=== PATIENT | female | born 1995 | race Caucasian/White ===

== ENCOUNTER 2024-03-10 16:04 | Emergency (ER) | payer OTHER, SELFPAY | END 2024-03-10 17:35 | disposition home or self-care (01) | LOC: NAV ERS 16:04 | DX: K04.7 Periapical abscess without sinus (principal); N64.51 Induration of breast; F17.210 Nicotine dependence, cigarettes, uncomplicated | CPT/HCPCS: 99282 ==

== ENCOUNTER 2025-01-29 16:22 | Emergency (ER) | payer OTHER | END 2025-01-29 16:43 | disposition home or self-care (01) | LOC: NAV ERS 16:22 | DX: K08.89 Other specified disorders of teeth and supporting structures (principal); K04.7 Periapical abscess without sinus; K02.9 Dental caries, unspecified; K03.81 Cracked tooth; F17.210 Nicotine dependence, cigarettes, uncomplicated | CPT/HCPCS: 99282 ==

== ENCOUNTER 2025-03-16 22:40 | Emergency (ER) | payer OTHER ==
[2025-03-16] MEDS ORDERED: Ibuprofen 800 MG TAB ONE (23:00)
== END 2025-03-16 23:07 | disposition home or self-care (01) ==
LOC: NAV ERS 22:40
DX: K04.7 Periapical abscess without sinus (principal); F17.290 Nicotine dependence, other tobacco product, uncomplicated; Z79.899 Other long term (current) drug therapy
CPT/HCPCS: 99283

== ENCOUNTER 2025-04-10 03:18 | Emergency (ER) | payer OTHER ==
[2025-04-10] MEDS ORDERED: HYDROcodone/Acetaminophen 5/325 mg Tablet ONE (03:38)
== END 2025-04-10 04:05 | disposition home or self-care (01) ==
LOC: NAV ERS 03:18
DX: H65.191 Other acute nonsuppurative otitis media, right ear (principal); K02.9 Dental caries, unspecified; F17.290 Nicotine dependence, other tobacco product, uncomplicated
CPT/HCPCS: 99282

== ENCOUNTER 2025-05-04 17:31 | Emergency (ER) | payer OTHER ==
[2025-05-04] MEDS ORDERED: Aspirin Chewable 81 MG TAB ONE (18:01)
[2025-05-04] MEDS ORDERED: Acetaminophen 500 MG TAB ONE (18:01)
[2025-05-04 18:32] LABS: Hematocrit 43.4 % (36.0-47.0); Hemoglobin 15.4 g/dL (12.0-16.0); Mean Corpuscular Hemoglobin 29.8 pg (27.0-31.0); Mean Corpuscular Volume 84.1 fl (78.0-98.0); Red Blood Cell (RBC) Count 5.16 mill/uL (4.20-5.40); White Blood Cell (WBC) Count 11.4 10x3/uL (4.8-10.8)
[2025-05-04 18:33] LABS: Platelet Count 277 10x3/uL (130-400)
[2025-05-04 18:34] LABS: Platelet Adequacy Comment Platelets Normal
[2025-05-04 18:38] LABS: ALT (SGPT) 10 U/L (Less than 34); AST (SGOT) 21 U/L (11-34); Albumin 4.0 g/dL (3.1-4.5); Alkaline Phosphatase 75 U/L (40-110); Anion Gap 16 mmol/L (10-20); BUN (Urea Nitrogen) 11 mg/dL (7.0-18.7); Bilirubin, Total 0.5 mg/dL (0.3-1.2); Calc. Creatinine Clearance 0 mL/min (70-130); Calcium 9.1 mg/dL (7.8-10.44); Carbon Dioxide 21 mmol/L (22-29); Chloride 106 mmol/L (98-107); Globulin 3.2 g/dL (2.4-3.5); Glucose 82 mg/dL (70-105); Potassium 3.8 mmol/L (3.5-5.1); Sodium 139 mmol/L (136-145)
[2025-05-04 18:40] LABS: Troponin I Less than 0.010 ng/mL (< 0.028)
== END 2025-05-04 19:07 | disposition home or self-care (01) ==
LOC: NAV ERS 17:31
DX: J20.9 Acute bronchitis, unspecified (principal); J18.9 Pneumonia, unspecified organism; F17.290 Nicotine dependence, other tobacco product, uncomplicated
CPT/HCPCS: 71046; 80053; 84484; 85025; 87428; 93005; 94640; 96374; J2919; J7030